=== PATIENT | male | born 1950 | race American Indian/Alaskan Native ===

== ENCOUNTER 2019-09-26 15:30 | Emergency (ER) | payer MEDICARE, OTHER ==
--- NOTE | 2019-09-26 17:41 | XRay Report ---
RIGHT WRIST 2 VIEWS INDICATION / CLINICAL INFORMATION: Right wrist pain and swelling after fall today. COMPARISON: None available. FINDINGS: BONES and JOINT(S): There is an acute comminuted distal radial metaphyseal fracture with intra-articu lar extension and dorsal angulation. No dislocation. No significant arthritis. SOFT TISSUES: Mild generalized edema along the wrist without an additional significant abnormality. ADDITIONAL FINDINGS: None. IMPRESSION: Acute right radial fracture as above. Signer Name: Domingo Rosas MD Signed: 09/26/2019 5:36 PM Workstation Name: [id number]
--- NOTE | 2019-09-26 17:44 | Event Note ---
ED Screening Note ED Screening Note: fx noted This initial assessment/diagnostic orders/clinical plan/treatment(s) is/are subject to change based on patients health status, clinical progression and re- assessment by fellow clinical providers in the ED. Further treatment and workup at subsequent clinical providers discretion. Patient/guardian urged not to elope from the ED as their condition may be serious if not clinically assessed and managed. Initial orders include: to [facility] for eval
--- NOTE | 2019-09-26 18:42 | Emergency Department Report ---
ED General Adult HPI - General Chief complaint: Animal Bite Stated complaint: FELL/RT HAND INJURY PUI?: No Time Seen by Provider: 09/26/19 17:20 Source: patient Mode of arrival: Ambulatory Limitations: No Limitations - History of Present Illness Initial comments: This is a 68-year-old male who presents the ED with right wrist pain and swelling that occurred today. Patient states he was walking home when some dogs started chasing him so he ran away while trying to get away patient states he fell on the concrete and try to brace his fall with his hand. Patient states pain began shortly after incident. Patient denies any head injuries or any other trauma. Patient states pain is worsened with rotation or after right wris t. He denies any other medical conditions. - Related Data Previous Rx's Medication Instructions Recorded Last Taken Type Amoxicillin/Potassium Clav 1 each PO BID #20 tablet 09/26/19 Unknown Rx [Augmentin 875-125 Tablet] HYDROcodone/APAP 5-325 [[place] 1 each PO Q6HR PRN #12 tablet 09/26/19 Unknown Rx 5/325] Ibuprofen [Motrin] 800 mg PO Q8HR #40 tablet 09/26/19 Unknown Rx Allergies Allergy/AdvReac Type Severity Reaction Status Date / Time Penicillins Allergy Unknown Verified 09/26/19 17:10 ED Review of Systems ROS: Stated complaint: FELL/RT HAND INJURY Other details as noted in HPI Comment: All other systems reviewed and negative ED Past Medical Hx - Medications Home Medications: Home Medications Medication Instructions Recorded Confirmed Last Taken Type Amoxicillin/Potassium Clav 1 each PO BID #20 tablet 09/26/19 Unknown Rx [Augmentin 875-125 Tablet] HYDROcodone/APAP 5-325 [[place] 1 each PO Q6HR PRN #12 tablet 09/26/19 Unknown Rx 5/325] Ibuprofen [Motrin] 800 mg PO Q8HR #40 tablet 09/26/19 Unknown Rx ED Physical Exam - General Limitations: No Limitations General appearance: alert, in no apparent distress - Head Head exam: Present: atraumatic, normocephalic - Eye Eye exam: Present: normal appearance - ENT ENT exam: Present: mucous membranes moist - Neck Neck exam: Present: normal inspection, full ROM. Absent: tenderness - Respiratory Respiratory exam: Present: normal lung sounds bilaterally. Absent: respiratory distress - Cardiovascular Cardiovascular Exam: Present: regular rate, normal rhythm. Absent: systolic murmur, diastolic murmur, rubs, gallop - GI/Abdominal GI/Abdominal exam: Present: soft, normal bowel sounds - Rectal Rectal exam: Present: deferred - Extremities Exam Extremities exam: Present: normal inspection, tenderness (To palpation of the right wrist,), normal capillary refill, joint swelling (Of the right wrist). Absent: full ROM (Limited range of motion due to pain with rotation of the wrist.) - Back Exam Back exam: Present: normal inspection - Neurological Exam Neurological exam: Present: alert, oriented X3 - Psychiatric Psychiatric exam: Present: normal affect, normal mood - Skin Skin exam: Present: warm, dry, intact, normal color, abrasion (from dog bite 2 noted on right lower leg). Absent: rash ED Course Vital Signs 09/26/19 17:09 Temperature 98.3 F Pulse Rate 82 Respiratory 20 Rate Blood Pressure 156/116 O2 Sat by Pulse 99 Oximetry ED Medical Decision Making - Radiology Data Radiology results: report reviewed, image reviewed RIGHT WRIST 2 VIEWS INDICATION / CLINICAL INFORMATION: Right wrist pain and swelling after fall today. COMPARISON: None available. FINDINGS: BONES and JOINT(S): There is an acute comminuted distal radial metaphyseal fracture with intra- articular extension and dorsal angulation. No dislocation. No significant arthritis. SOFT TISSUES: Mild generalized edema along the wrist without an additional significant abnormality. ADDITIONAL FINDINGS: None. IMPRESSION: Acute right radial fracture as above. Signer Name: Domingo Rosas MD Signed: 09/26/2019 5:36 PM Workstation Name: [id number] Transcribed By: [place] Dictated By: Domingo Rosas MD Electronically Authenticated By: Domingo Rosas MD Signed Date/Time: 09/26/19 1736 - Medical Decision Making 68-year-old male presents with fracture of the radial bone of right wrist ED course: Pt received [place] tabs in ED Right hand x-ray ordered. Right hand x-ray shows: see report above Discussed findings with patient. Discussed application of right volar splint to be placed. Post-splint evaluation: Capillary refill 2 seconds, patient able to wiggle fingers, neurovascularly intact no loss of sensation. Discussed the patient and orthopedic follow-up in 2-3 days. Referrals given. From follow-up from care physician. Vital signs are normal patient is in no acute or respiratory distress. Patient states understanding all discussed complaint of follow-up. Patient also sustained a dog bite to the right lower lateral leg. Nonbleeding. Wounds were cleaned and wrapped sterilely. Patient states that animal control have quarantine the dog's and will advised him if he needs rabies vaccine Critical care attestation.: If time is entered above; I have spent that time in minutes in the direct care of this critically ill patient, excluding procedure time. ED Disposition Clinical Impression: Right radial fracture Dog bite Qualifiers: Encounter type: initial encounter Qualified Code(s): W54.0XXA - Bitten by dog, initial encounter Disposition: TO HOME OR SELFCARE Is pt being admited?: No Does the pt Need Aspirin: No Condition: Stable Instructions: Animal Bite (ED), Wrist Fracture in Adults (ED) Additional Instructions: Make sure to follow up with the primary care physician as discussed. Take all your medications as you've been prescribed. If you have any worsening symptoms or develop new symptoms please return to ED immediately. Prescriptions: Amoxicillin/Potassium Clav [Augmentin 875-125 Tablet] 1 each PO BID #20 tablet Ibuprofen [Motrin] 800 mg PO Q8HR #40 tablet HYDROcodone/APAP 5-325 [[place] 5/325] 1 each PO Q6HR PRN #12 tablet PRN Reason: Pain Referrals: [facility] [Provider Group] - 3-5 Days [facility] [Outside] - 3-5 Days [facility] [Outside] - 3-5 Days Forms: Accompanied Note, Work/School Release Form(ED) Time of Disposition: 19:57
[2019-09-26] MEDS ORDERED: DIPHtheria,PERTUSSIS(ACELL),TETANUS VACCINE/PF 0.5 ML VIAL IM ONE (18:51)
[2019-09-26] MEDS ORDERED: AMOXICILLIN/K CLAV 875/125MG TAB PO ONE (18:51)
[2019-09-26] MEDS ORDERED: HYDROcodone/ACETAMINOPHEN 5-325 MG TAB PO ONE (18:51)
[2019-09-26 20:31] VITALS: BP 156/92
== END 2019-09-26 20:44 | disposition home or self-care (01) ==
LOC: ED 20:40
DX: S52.591A Other fractures of lower end of right radius, initial encounter for closed fracture (principal); S81.851A Open bite, right lower leg, initial encounter; Z79.1 Long term (current) use of non-steroidal anti-inflammatories (NSAID); Z79.2 Long term (current) use of antibiotics; Z79.899 Other long term (current) drug therapy; Z88.0 Allergy status to penicillin; W54.0XXA Bitten by dog, initial encounter; W18.31XA Fall on same level due to stepping on an object, initial encounter; Y93.89 Activity, other specified; Y92.89 Other specified places as the place of occurrence of the external cause; Y99.8 Other external cause status
CPT/HCPCS: 90471; 90715